=== PATIENT | female | born 1960 | race Caucasian/White ===

== ENCOUNTER 2024-11-17 08:22 | Inpatient (IN) ==
[2024-11-17] MEDS ORDERED: IOPAMIDOL 100 ML BOTTLE IV ONE (08:23)
[2024-11-17] MEDS: methylPREDNISolone SOD SUCC 125 MG/2 ML VIAL IV ONE (08:40)
[2024-11-17 08:55] LABS: Basophils # (Auto) 0.01 K/mcL (0.00-0.30); Basophils % (Auto) 0.2 % (0.0-2.0); Eosinophils # (Auto) 0.05 K/mcL (0.00-0.70); Eosinophils % (Auto) 0.9 % (0.0-7.0); Hemoglobin 12.6 g/dL (11.2-15.7); Lymphocytes # (Auto) 0.42 K/mcL (1.50-4.80); Lymphocytes % (Auto) 7.2 % (15.5-49.0); Mean Cell Volume 103.2 fL (80.0-100.0); Mean Platelet Volume 9.1 fL (8.8-12.5); Monocytes # (Auto) 0.67 K/mcL (0.10-0.90); Monocytes % (Auto) 11.5 % (1.0-12.0); Neutrophils % (Auto) 79.5 % (38.0-78.0); Platelet Count 179 K/mcL (140-440); RBC 4.07 M/mcL (3.59-5.38); Red Cell Distribution Width 12.8 % (11.5-14.5); WBC 5.8 K/mcL (4.5-11.0)
[2024-11-17 09:13] LABS: ABG Methemoglobin 0.2 % (0.4-1.5); Total Hemoglobin 13.7 gm/Dl (12.0-15.0); VBG Base Excess 6 (-2-3); VBG HCO3 36.3 mmol/L (24.0-28.0); VBG Oxygen Saturation 79.1 % (40.0-70.0); VBG PCO2 85.2 mmHg (41.0-51.0); VBG PH 7.25 U (7.32-7.42); VBG PO2 48.9 mmHg (25.0-40.0); VBG Total CO2 38.9 mmol/L (25.0-29.0)
[2024-11-17 09:33] LABS: Blood Urea Nitrogen 9 mg/dL (8-23); Calcium 8.2 mg/dL (8.6-10.4); Carbon Dioxide 41 mmol/L (22-30); Chloride 94 mmol/L (96-108); Glomerular Filtration Rate 119; Glucose 127 mg/dL (70-105); Potassium 4.7 mmol/L (3.3-5.1); Sodium 142 mmol/L (133-145)
[2024-11-17] MEDS: LEVOFLOXACIN 750 MG/150 ML BAG IV ONE (09:47)
[2024-11-17] MEDS: IPRATROPIUM/ALBUTEROL 3 ML AMPUL.NEB NEB ONE ×4 (09:54→13:57)
[2024-11-17 12:27] LABS: ABG Methemoglobin 0.2 % (0.4-1.5); Total Hemoglobin 12.9 gm/Dl (12.0-15.0); VBG Base Excess 9 (-2-3); VBG Oxygen Saturation 95.4 % (40.0-70.0); VBG PCO2 90.3 mmHg (41.0-51.0); VBG PH 7.25 U (7.32-7.42); VBG PO2 140.1 mmHg (25.0-40.0); VBG Total CO2 41.8 mmol/L (25.0-29.0)
[2024-11-17] MEDS: MAGNESIUM SULFATE 2 GM/50 ML BAG IV ONE (12:44)
[2024-11-17] MEDS: FUROSEMIDE 20 MG/2 ML VIAL IV ONE (12:54)
[2024-11-17 14:45] LABS: ABG Methemoglobin 0.2 % (0.4-1.5); VBG Base Excess 12 (-2-3); VBG HCO3 43.4 mmol/L (24.0-28.0); VBG Oxygen Saturation 83.2 % (40.0-70.0); VBG PH 7.27 U (7.32-7.42); VBG PO2 52.1 mmHg (25.0-40.0); VBG Total CO2 46.4 mmol/L (25.0-29.0)
[2024-11-17] MEDS ORDERED: SENNOSIDES 1 TABLET PO PRN (16:24)
[2024-11-17] MEDS: ACETAMINOPHEN 325 MG TABLET PO PRN (16:34)
[2024-11-17] MEDS: IPRATROPIUM/ALBUTEROL 3 ML AMPUL.NEB NEB SCH (18:09)
[2024-11-17] MEDS: ONDANSETRON 4 MG/2 ML VIAL IV PRN (19:01)
[2024-11-17] MEDS: 0.9 % SODIUM CHLORIDE 10 ML SYRINGE IV SCH (19:02)
[2024-11-17] MEDS: DOCUSATE SODIUM 100 MG CAPSULE PO SCH (19:04)
[2024-11-17] MEDS: methylPREDNISolone SOD SUCC 125 MG/2 ML VIAL IV SCH (20:35)
[2024-11-17] MEDS: KETOROLAC 15 MG/ML VIAL IV PRN (20:35)
[2024-11-18] MEDS: BUTALB/ACETAMINOPHEN/CAFFEINE 1 TABLET PO PRN (02:25)
[2024-11-18] MEDS: ALBUTEROL SULFATE 2.5 MG/3 ML NEBULIZER NEB PRN (04:19)
[2024-11-18 05:27] LABS: ABG Methemoglobin 0.2 % (0.4-1.5); Total Hemoglobin 12.8 gm/Dl (12.0-15.0); VBG Base Excess 10 (-2-3); VBG HCO3 40.3 mmol/L (24.0-28.0); VBG Oxygen Saturation 66.8 % (40.0-70.0); VBG PCO2 87.5 mmHg (41.0-51.0); VBG PH 7.28 U (7.32-7.42); VBG PO2 35.8 mmHg (25.0-40.0)
[2024-11-18 06:09] LABS: ALT/SGPT 12 U/L (<40); AST/SGOT 17 U/L (<32); Albumin 3.6 gm/dL (3.2-5.2); Albumin/Globulin Ratio 1.6 (1.0-2.3); Alkaline Phosphatase 64 U/L (39-117); Bilirubin,Direct < 0.2 mg/dL (0-0.3); Bilirubin,Total < 0.2 mg/dL (0.1-1.0); Blood Urea Nitrogen 13 mg/dL (8-23); Carbon Dioxide 40 mmol/L (22-30); Chloride 90 mmol/L (96-108); Globulin 2.2 gm/dL (2.2-3.7); Glomerular Filtration Rate 119; Glucose 164 mg/dL (70-105); Lactate Dehydrogenase 153 U/L (135-225); Phosphorous 2.8 mg/dL (2.5-4.5); Potassium 4.9 mmol/L (3.3-5.1); Sodium 136 mmol/L (133-145); Triglycerides 68 mg/dL (<150)
[2024-11-18] MEDS: ENOXAPARIN 40 MG/0.4 ML SYRINGE SQ SCH (09:19)
[2024-11-18] MEDS: LEVOFLOXACIN 750 MG/150 ML BAG IV SCH (09:19)
[2024-11-18] MEDS: NICOTINE 7 MG PATCH TOPICAL SCH (11:48)
[2024-11-19 06:19] LABS: ABG Methemoglobin 0.3 % (0.4-1.5); Total Hemoglobin 12.4 gm/Dl (12.0-15.0); VBG Base Excess 13 (-2-3); VBG HCO3 42.1 mmol/L (24.0-28.0); VBG PCO2 81.2 mmHg (41.0-51.0); VBG PH 7.33 U (7.32-7.42); VBG Total CO2 44.6 mmol/L (25.0-29.0)
[2024-11-19 06:50] LABS: ALT/SGPT 10 U/L (<40); AST/SGOT 14 U/L (<32); Albumin 3.5 gm/dL (3.2-5.2); Albumin/Globulin Ratio 1.8 (1.0-2.3); Alkaline Phosphatase 60 U/L (39-117); Bilirubin,Direct < 0.2 mg/dL (0-0.3); Bilirubin,Total < 0.2 mg/dL (0.1-1.0); Blood Urea Nitrogen 9 mg/dL (8-23); Calcium 8.9 mg/dL (8.6-10.4); Carbon Dioxide 45 mmol/L (22-30); Chloride 93 mmol/L (96-108); Glomerular Filtration Rate 119; Glucose 125 mg/dL (70-105); Lactate Dehydrogenase 143 U/L (135-225); Phosphorous 2.3 mg/dL (2.5-4.5); Sodium 141 mmol/L (133-145); Triglycerides 67 mg/dL (<150); Uric Acid 2.1 mg/dL (2.5-8.0)
[2024-11-19] MEDS: CITALOPRAM 20 MG TABLET PO SCH (08:38)
[2024-11-19] MEDS: buPROPion 150 MG TAB.XL.24H PO SCH (08:38)
[2024-11-19] MEDS: FLUTICASONE UMECLIDIN VILANTER INH SCH (10:07)
[2024-11-19] MEDS: IPRATROPIUM/ALBUTEROL 3 ML AMPUL.NEB NEB PRN (20:54)
[2024-11-20 07:29] LABS: ALT/SGPT 8 U/L (<40); AST/SGOT 14 U/L (<32); Albumin 3.5 gm/dL (3.2-5.2); Albumin/Globulin Ratio 1.7 (1.0-2.3); Alkaline Phosphatase 59 U/L (39-117); Bilirubin,Direct < 0.2 mg/dL (0-0.3); Bilirubin,Total < 0.2 mg/dL (0.1-1.0); Blood Urea Nitrogen 13 mg/dL (8-23); Calcium 9.4 mg/dL (8.6-10.4); Carbon Dioxide 46 mmol/L (22-30); Chloride 93 mmol/L (96-108); Globulin 2.1 gm/dL (2.2-3.7); Glomerular Filtration Rate 136; Glucose 94 mg/dL (70-105); Lactate Dehydrogenase 140 U/L (135-225); Phosphorous 4.1 mg/dL (2.5-4.5); Potassium 4.9 mmol/L (3.3-5.1); Sodium 141 mmol/L (133-145); Triglycerides 87 mg/dL (<150); Uric Acid 1.9 mg/dL (2.5-8.0)
[2024-11-20] MEDS: methylPREDNISolone SOD SUCC 40 MG/ML VIAL IV SCH (09:02)
[2024-11-20] MEDS: acetaZOLAMIDE SOD 500 MG VIAL IV ONE (09:05)
[2024-11-21 07:09] LABS: ALT/SGPT 9 U/L (<40); AST/SGOT 11 U/L (<32); Albumin 3.7 gm/dL (3.2-5.2); Albumin/Globulin Ratio 1.8 (1.0-2.3); Alkaline Phosphatase 59 U/L (39-117); Bilirubin,Direct < 0.2 mg/dL (0-0.3); Bilirubin,Total < 0.2 mg/dL (0.1-1.0); Blood Urea Nitrogen 13 mg/dL (8-23); Calcium 8.7 mg/dL (8.6-10.4); Carbon Dioxide 39 mmol/L (22-30); Chloride 94 mmol/L (96-108); Globulin 2.1 gm/dL (2.2-3.7); Glomerular Filtration Rate 119; Glucose 90 mg/dL (70-105); Lactate Dehydrogenase 136 U/L (135-225); Phosphorous 3.4 mg/dL (2.5-4.5); Potassium 4.4 mmol/L (3.3-5.1); Sodium 139 mmol/L (133-145); Triglycerides 102 mg/dL (<150); Uric Acid 2.4 mg/dL (2.5-8.0)
[2024-11-21] MEDS: predniSONE 20 MG TABLET PO SCH (09:20)
[2024-11-21] MEDS: acetaZOLAMIDE SOD 500 MG VIAL IV ONE (09:38)
[2024-11-21] MEDS: LACTULOSE 20 GM/30 ML ORAL.SOL PO PRN (09:55)
[2024-11-22 10:14] VITALS: O2SAT 96
[2024-11-22 13:28] VITALS: TEMP 98.1
== END 2024-11-22 13:14 | disposition home or self-care (01) | DRG 189 ==
LOC: ED 08:22 → ICU 16:20
PROVIDERS: ADMIT Internal Medicine; ATTEND Internal Medicine

== ENCOUNTER 2025-05-15 07:02 | Inpatient (IN) ==
[2025-05-15] MEDS: IPRATROPIUM/ALBUTEROL 3 ML AMPUL.NEB NEB ONE ×2 (07:52→08:34)
[2025-05-15 08:04] LABS: Basophils # (Auto) 0.01 K/mcL (0.00-0.30); Basophils % (Auto) 0.1 % (0.0-2.0); Eosinophils # (Auto) 0.12 K/mcL (0.00-0.70); Eosinophils % (Auto) 0.9 % (0.0-7.0); Hematocrit 42.6 % (34.1-44.9); Hemoglobin 13.0 g/dL (11.2-15.7); Lymphocytes # (Auto) 1.01 K/mcL (1.50-4.80); Lymphocytes % (Auto) 7.7 % (15.5-49.0); Mean Corpuscular HGB Conc 30.5 g/dL (31.0-36.0); Monocytes # (Auto) 1.61 K/mcL (0.10-0.90); Monocytes % (Auto) 12.3 % (1.0-12.0); Neutrophils % (Auto) 78.8 % (38.0-78.0); Platelet Count 278 K/mcL (140-440); RBC 4.13 M/mcL (3.59-5.38); WBC 13.1 K/mcL (4.5-11.0)
[2025-05-15 08:30] LABS: ALT/SGPT 11 U/L (<40); AST/SGOT 13 U/L (<32); Albumin 3.7 gm/dL (3.2-5.2); Albumin/Globulin Ratio 1.2 (1.0-2.3); Alkaline Phosphatase 78 U/L (39-117); Anion Gap 10.0 (8.0-16.0); Bilirubin,Total 0.4 mg/dL (0.1-1.0); Blood Urea Nitrogen 10 mg/dL (8-23); Calcium 9.4 mg/dL (8.6-10.4); Carbon Dioxide 37 mmol/L (22-30); Chloride 88 mmol/L (96-108); Globulin 3.0 gm/dL (2.2-3.7); Glucose 96 mg/dL (70-105); Potassium 4.0 mmol/L (3.3-5.1); Sodium 135 mmol/L (133-145)
[2025-05-15] MEDS: MAGNESIUM SULFATE 2 GM/50 ML BAG IV ONE (08:34)
[2025-05-15] MEDS ORDERED: LACTULOSE 20 GM/30 ML ORAL.SOL PO PRN (14:53)
[2025-05-15] MEDS ORDERED: ONDANSETRON 4 MG/2 ML VIAL IV PRN (14:53)
[2025-05-15] MEDS ORDERED: SENNOSIDES 1 TABLET PO PRN (14:53)
[2025-05-15] MEDS: IPRATROPIUM/ALBUTEROL 3 ML AMPUL.NEB NEB SCH (15:08)
[2025-05-15] MEDS: cefTRIAXone 1 GM in DEXTROSE 5% IN WATER 50 ML IV SCH (15:17)
[2025-05-15] MEDS: LIDOCAINE 4% TOP PATCH TOPICAL SCH (15:38)
[2025-05-15] MEDS: NICOTINE 21 MG PATCH TOPICAL SCH (15:41)
[2025-05-15] MEDS: cefTRIAXone 1 GM VIAL IV SCH (15:42)
[2025-05-15] MEDS: AZITHROMYCIN 500 MG in DEXTROSE 5% IN WATER 250 ML IV SCH (15:43)
[2025-05-15] MEDS: 0.9 % SODIUM CHLORIDE 10 ML SYRINGE IV SCH (15:44)
[2025-05-15] MEDS ORDERED: ALBUTEROL SULFATE 60 PUFF INHALER INH PRN (17:59)
[2025-05-15] MEDS ORDERED: IPRATROPIUM BROMIDE 0.02% INH PRN (18:11)
[2025-05-15] MEDS: DOCUSATE SODIUM 100 MG CAPSULE PO SCH (20:26)
[2025-05-15] MEDS: ACETAMINOPHEN 325 MG TABLET PO PRN (22:05)
[2025-05-16 06:21] LABS: Basophils # (Auto) 0.01 K/mcL (0.00-0.30); Basophils % (Auto) 0.1 % (0.0-2.0); Eosinophils # (Auto) 0 K/mcL (0.00-0.70); Eosinophils % (Auto) 0 % (0.0-7.0); Hematocrit 39.8 % (34.1-44.9); Hemoglobin 12.2 g/dL (11.2-15.7); Lymphocytes # (Auto) 0.35 K/mcL (1.50-4.80); Lymphocytes % (Auto) 3.4 % (15.5-49.0); Mean Corpuscular HGB Conc 30.7 g/dL (31.0-36.0); Monocytes # (Auto) 0.53 K/mcL (0.10-0.90); Monocytes % (Auto) 5.2 % (1.0-12.0); Neutrophils % (Auto) 91.1 % (38.0-78.0); Platelet Count 251 K/mcL (140-440); RBC 3.90 M/mcL (3.59-5.38); WBC 10.2 K/mcL (4.5-11.0)
[2025-05-16 06:35] LABS: VBG HCO3 40.9 mmol/L (24.0-28.0); VBG PCO2 68.1 mmHg (41.0-51.0); VBG PH 7.40 U (7.32-7.42); VBG PO2 88.4 mmHg (25.0-40.0)
[2025-05-16] MEDS: PANTOPRAZOLE 40 MG TABLET PO SCH (07:29)
[2025-05-16 07:32] LABS: ALT/SGPT 9 U/L (<40); AST/SGOT 8 U/L (<32); Albumin 3.3 gm/dL (3.2-5.2); Albumin/Globulin Ratio 1.3 (1.0-2.3); Alkaline Phosphatase 65 U/L (39-117); Anion Gap 8.0 (8.0-16.0); Bilirubin,Total < 0.2 mg/dL (0.1-1.0); Blood Urea Nitrogen 12 mg/dL (8-23); Calcium 8.8 mg/dL (8.6-10.4); Carbon Dioxide 35 mmol/L (22-30); Chloride 93 mmol/L (96-108); Globulin 2.6 gm/dL (2.2-3.7); Glucose 175 mg/dL (70-105); Potassium 4.6 mmol/L (3.3-5.1); Sodium 136 mmol/L (133-145)
[2025-05-16] MEDS ORDERED: Fluticasone-Umeclidin-Vilanter [Trelegy Ellipta] PO SCH (09:00)
[2025-05-16] MEDS: ENOXAPARIN 40 MG/0.4 ML SYRINGE SQ SCH (09:54)
[2025-05-16] MEDS: buPROPion 150 MG TAB.XL.24H PO SCH (09:55)
[2025-05-16] MEDS: CITALOPRAM 20 MG TABLET PO SCH (09:55)
[2025-05-16] MEDS: VILANTEROL PO SCH (12:56)
[2025-05-16] MEDS: UMECLIDINIUM PO SCH (12:56)
[2025-05-16] MEDS: FLUTICASONE PO SCH (12:56)
[2025-05-17 07:38] LABS: VBG HCO3 43.5 mmol/L (24.0-28.0); VBG PCO2 77.9 mmHg (41.0-51.0); VBG PH 7.37 U (7.32-7.42); VBG PO2 92.9 mmHg (25.0-40.0)
[2025-05-17 07:58] LABS: ALT/SGPT 10 U/L (<40); AST/SGOT 10 U/L (<32); Albumin 3.2 gm/dL (3.2-5.2); Albumin/Globulin Ratio 1.5 (1.0-2.3); Alkaline Phosphatase 76 U/L (39-117); Anion Gap 5.0 (8.0-16.0); Basophils # (Auto) 0.01 K/mcL (0.00-0.30); Basophils % (Auto) 0.1 % (0.0-2.0); Bilirubin,Total < 0.2 mg/dL (0.1-1.0); Blood Urea Nitrogen 18 mg/dL (8-23); Calcium 9.0 mg/dL (8.6-10.4); Carbon Dioxide 39 mmol/L (22-30); Chloride 95 mmol/L (96-108); Eosinophils # (Auto) 0 K/mcL (0.00-0.70); Eosinophils % (Auto) 0 % (0.0-7.0); Globulin 2.1 gm/dL (2.2-3.7); Glucose 218 mg/dL (70-105); Hematocrit 36.3 % (34.1-44.9); Hemoglobin 11.3 g/dL (11.2-15.7); Lymphocytes # (Auto) 0.42 K/mcL (1.50-4.80); Lymphocytes % (Auto) 2.6 % (15.5-49.0); Mean Corpuscular HGB Conc 31.1 g/dL (31.0-36.0); Monocytes # (Auto) 1.43 K/mcL (0.10-0.90); Monocytes % (Auto) 8.9 % (1.0-12.0); Neutrophils % (Auto) 88.2 % (38.0-78.0); Platelet Count 305 K/mcL (140-440); Potassium 4.7 mmol/L (3.3-5.1); RBC 3.51 M/mcL (3.59-5.38); Sodium 139 mmol/L (133-145); WBC 16.1 K/mcL (4.5-11.0)
[2025-05-17] MEDS: ALBUTEROL SULFATE 2.5 MG/3 ML NEBULIZER NEB PRN (14:00)
[2025-05-18] MEDS: guaiFENesin/DEXTROMETHORPHAN 5ML UD CUP PO PRN (05:58)
[2025-05-18 06:03] LABS: Basophils # (Auto) 0.01 K/mcL (0.00-0.30); Basophils % (Auto) 0.1 % (0.0-2.0); Eosinophils # (Auto) 0 K/mcL (0.00-0.70); Eosinophils % (Auto) 0 % (0.0-7.0); Hematocrit 37.3 % (34.1-44.9); Hemoglobin 11.3 g/dL (11.2-15.7); Lymphocytes # (Auto) 0.60 K/mcL (1.50-4.80); Lymphocytes % (Auto) 4.3 % (15.5-49.0); Mean Corpuscular HGB Conc 30.3 g/dL (31.0-36.0); Monocytes # (Auto) 1.01 K/mcL (0.10-0.90); Monocytes % (Auto) 7.3 % (1.0-12.0); Neutrophils % (Auto) 87.6 % (38.0-78.0); Platelet Count 312 K/mcL (140-440); RBC 3.59 M/mcL (3.59-5.38); WBC 13.8 K/mcL (4.5-11.0)
[2025-05-18 06:36] LABS: ALT/SGPT 12 U/L (<40); AST/SGOT 11 U/L (<32); Albumin 3.1 gm/dL (3.2-5.2); Albumin/Globulin Ratio 1.5 (1.0-2.3); Alkaline Phosphatase 64 U/L (39-117); Anion Gap 6.0 (8.0-16.0); Bilirubin,Total < 0.2 mg/dL (0.1-1.0); Blood Urea Nitrogen 15 mg/dL (8-23); Calcium 8.6 mg/dL (8.6-10.4); Carbon Dioxide 39 mmol/L (22-30); Chloride 95 mmol/L (96-108); Globulin 2.1 gm/dL (2.2-3.7); Glucose 119 mg/dL (70-105); Potassium 4.6 mmol/L (3.3-5.1); Sodium 140 mmol/L (133-145)
[2025-05-18 07:26] LABS: VBG HCO3 40.7 mmol/L (24.0-28.0); VBG PCO2 63.0 mmHg (41.0-51.0); VBG PH 7.43 U (7.32-7.42); VBG PO2 181.9 mmHg (25.0-40.0)
[2025-05-19 06:09] LABS: Basophils # (Auto) 0 K/mcL (0.00-0.30); Basophils % (Auto) 0 % (0.0-2.0); Eosinophils # (Auto) 0 K/mcL (0.00-0.70); Eosinophils % (Auto) 0 % (0.0-7.0); Hematocrit 37.3 % (34.1-44.9); Hemoglobin 11.6 g/dL (11.2-15.7); Lymphocytes # (Auto) 0.44 K/mcL (1.50-4.80); Lymphocytes % (Auto) 4.6 % (15.5-49.0); Mean Corpuscular HGB Conc 31.1 g/dL (31.0-36.0); Monocytes # (Auto) 0.88 K/mcL (0.10-0.90); Monocytes % (Auto) 9.2 % (1.0-12.0); Neutrophils % (Auto) 84.3 % (38.0-78.0); Platelet Count 344 K/mcL (140-440); RBC 3.67 M/mcL (3.59-5.38); WBC 9.6 K/mcL (4.5-11.0)
[2025-05-19 06:27] LABS: ALT/SGPT 15 U/L (<40); AST/SGOT 11 U/L (<32); Albumin 3.2 gm/dL (3.2-5.2); Albumin/Globulin Ratio 1.7 (1.0-2.3); Alkaline Phosphatase 64 U/L (39-117); Anion Gap 7.0 (8.0-16.0); Bilirubin,Total < 0.2 mg/dL (0.1-1.0); Blood Urea Nitrogen 17 mg/dL (8-23); Calcium 8.9 mg/dL (8.6-10.4); Carbon Dioxide 38 mmol/L (22-30); Chloride 92 mmol/L (96-108); Globulin 1.9 gm/dL (2.2-3.7); Glucose 194 mg/dL (70-105); Potassium 4.6 mmol/L (3.3-5.1); Sodium 137 mmol/L (133-145)
[2025-05-20 06:21] LABS: Basophils # (Auto) 0.01 K/mcL (0.00-0.30); Basophils % (Auto) 0.1 % (0.0-2.0); Eosinophils # (Auto) 0.04 K/mcL (0.00-0.70); Eosinophils % (Auto) 0.5 % (0.0-7.0); Hematocrit 38.0 % (34.1-44.9); Hemoglobin 11.8 g/dL (11.2-15.7); Lymphocytes # (Auto) 0.85 K/mcL (1.50-4.80); Lymphocytes % (Auto) 10.2 % (15.5-49.0); Mean Corpuscular HGB Conc 31.1 g/dL (31.0-36.0); Monocytes # (Auto) 0.60 K/mcL (0.10-0.90); Monocytes % (Auto) 7.2 % (1.0-12.0); Neutrophils % (Auto) 80.0 % (38.0-78.0); Platelet Count 376 K/mcL (140-440); RBC 3.77 M/mcL (3.59-5.38); WBC 8.3 K/mcL (4.5-11.0)
[2025-05-20 07:04] LABS: ALT/SGPT 17 U/L (<40); AST/SGOT 12 U/L (<32); Albumin 3.2 gm/dL (3.2-5.2); Albumin/Globulin Ratio 1.8 (1.0-2.3); Alkaline Phosphatase 62 U/L (39-117); Anion Gap 5.0 (8.0-16.0); Bilirubin,Total < 0.2 mg/dL (0.1-1.0); Blood Urea Nitrogen 17 mg/dL (8-23); Calcium 8.8 mg/dL (8.6-10.4); Carbon Dioxide 42 mmol/L (22-30); Chloride 91 mmol/L (96-108); Globulin 1.8 gm/dL (2.2-3.7); Glucose 111 mg/dL (70-105); Potassium 4.7 mmol/L (3.3-5.1); Sodium 138 mmol/L (133-145)
[2025-05-20 08:39] VITALS: O2SAT 94
[2025-05-20 10:45] VITALS: TEMP 98.9
== END 2025-05-20 10:57 | disposition home or self-care (01) | DRG 190 ==
LOC: ED 07:02 → ICU 14:41
PROVIDERS: ADMIT Internal Medicine; ATTEND Internal Medicine